=== PATIENT | female | born 1995 | race Asian ===

== ENCOUNTER 2021-03-11 17:33 | Emergency (ER) | payer MEDICAID ==
[~2021-03-11] VITALS: Ht 160 cm; Wt 57.2 kg
--- NOTE | 2021-03-11 17:50 | NUR ---
TO ER BED 16 FOR ELVIS LEON
--- NOTE | 2021-03-11 18:00 | NUR ---
URINE COLLECTED AND SENT TO THE LAB
[2021-03-11 18:18] LABS: BILIRUBIN,URINE NEGATIVE (NEGATIVE); COLOR,URINE YELLOW (YELLOW); LEUKOCYTE ESTERASE ,URINE NEGATIVE (NEGATIVE); NITRITE, URINE NEGATIVE (NEGATIVE); PROTEIN,URINE NEGATIVE (NEGATIVE); UGLUCOSE NEGATIVE (NEGATIVE); UROBILINOGEN,URINE 0.2 EU/dL (0.2)
--- NOTE | 2021-03-11 18:29 | NUR ---
BLOOD SPECIMEN COLLECTED AND SENT TO THE LAB
[2021-03-11 18:45] LABS: WHITE BLOOD COUNT (AUTO) 9.8 K/uL (4.3-11.0)
[2021-03-11 18:49] LABS: BASOPHILS % (AUTO) 0.4 % (0.0-2.0); EOSINOPHILS % (AUTO) 0.7 % (0.0-6.0); HEMATOCRIT 38 % (33-45); HEMOGLOBIN 12.9 g/dL (11.5-14.8); LYMPHOCYTES # (AUTO) 2.4 K/uL (0.8-4.8); MEAN CORPUSCULAR HGB CONC 34 g/dl (31.0-36.0); MEAN CORPUSCULAR VOLUME 90 fL (82-100); MONOCYTES # (AUTO) 0.6 K/uL (0.1-1.30); MONOCYTES % (AUTO) 5.7 % (2.0-12.0); NEUTROPHILS # (AUTO) 6.8 K/uL (1.8-8.9); NEUTROPHILS % (AUTO) 69.2 % (43.0-81.0); PLATELET COUNT (AUTO) 289 K/uL (150-450); RED BLOOD CELL COUNT(AUTO) 4.18 MIL/uL (4.0-5.2)
[2021-03-11 19:00] LABS: CALCIUM, SERUM 8.9 mg/dL (8.5-10.1); CREATININE 0.5 mg/dL (0.6-1.3); POTASSIUM 3.6 mmol/L (3.5-5.1)
--- NOTE | 2021-03-11 20:21 | NUR ---
Patient discharged to home in stable condition. Written and verbal after care instructions given. Patient verbalizes understanding of instruction. IV removed. Catheter intact and site benign. Pressure and 4x4 applied to site. No bleeding noted. pt ambulatory with a steady gait
[2021-03-11 20:33] VITALS: BP 121/77
== END 2021-03-11 20:21 | disposition home or self-care (01) ==
LOC: ER 17:37
DX: O20.0 Threatened abortion (principal); E03.9 Hypothyroidism, unspecified; Z60.2 Problems related to living alone
CPT/HCPCS: 36415; 76805-TC; 80048-TC; 84702-TC; 85025-TC; 85730-TC